=== PATIENT | male | born 1955 | race American Indian/Alaskan Native ===

== ENCOUNTER 2019-04-04 15:20 | Inpatient (IN) | payer MEDICARE ==
[2019-04-04] MEDS ORDERED: ASPIRIN 81 MG TAB CHEW PO ONE (16:06)
--- NOTE | 2019-04-04 16:09 | Emergency Department Report ---
ED Chest Pain HPI - General Chief Complaint: Urogenital-Male Stated Complaint: BLOOD IN URINE/CHEST PAIN Time Seen by Provider: 04/04/19 15:55 Source: EMS Mode of arrival: Stretcher Limitations: No Limitations - History of Present Illness Initial Comments: Patient is 63 years old male with history of coronary artery disease status post stents in 2018. Patient also had history of hypertension diabetes and congestive heart failure with ejection fraction of 10%. Patient presented to the ER complaining of chest pain started last night, substernal with no radiation. Patient stated the pain associated with shortness of breath. Patient is also complaining of hematuria for the last 3 days associated with a burning sensation and urinary frequency. Patient denied any fever or chills. No nausea or vomiting MD Complaint: chest pain -: Last night Onset: during rest Pain Location: substernal Pain Radiation: none Severity: moderate Quality: heaviness Consistency: constant - Related Data Home Medications Medication Instructions Recorded Confirmed Last Taken Acetaminophen [Tylenol Extra 500 mg PO TID 03/27/17 04/04/19 Unknown Strength] Cetirizine HCl [Zyrtec 10mg tab] 10 mg PO QAM 03/27/17 04/04/19 Unknown Folic Acid/Multivit,Iron,[place] 1 each PO DAILY 03/27/17 04/04/19 Unknown [One Daily Maximum Tablet] OLANZapine [Zyprexa] 20 mg PO QHS 03/27/17 04/04/19 Unknown Psyllium Husk/Aspartame [Metamucil 15 ml PO BID 03/27/17 04/04/19 Unknown Sugar-Free Powder] Sertraline [Zoloft] 50 mg PO DAILY 03/27/17 04/04/19 Unknown diphenhydrAMINE [Benadryl CAP] 50 mg PO QHS PRN 03/27/17 04/04/19 Unknown raNITIdine HCl [Zantac] 150 mg PO BID 03/27/17 04/04/19 Unknown tiZANidine [Zanaflex 4mg TAB] 4 mg PO HS 03/27/17 04/04/19 Unknown OLANzapine [ZyPREXA] 5 mg PO QDAY 04/04/19 04/04/19 Unknown Sertraline [Zoloft] 100 mg PO QDAY 04/04/19 04/04/19 Unknown Previous Rx's Medication Instructions Recorded Last Taken Type Aspirin EC [Halfprin EC] 81 mg PO DAILY #30 tablet 04/03/17 Unknown Rx AtorvaSTATin [Lipitor] 40 mg PO QHS #30 tablet 04/03/17 Unknown Rx Clopidogrel [Plavix] 75 mg PO QDAY #30 tablet 04/03/17 Unknown Rx ISOSORBIDE MONOnitrate [Imdur ER] 30 mg PO QDAY #30 tablet 04/03/17 Unknown Rx Temazepam [Restoril] 7.5 mg PO HS PRN #7 capsule 04/03/17 Unknown Rx carvediloL [Coreg] 3.125 mg PO BID #60 tablet 04/03/17 Unknown Rx lisinopriL [Zestril TAB] 2.5 mg PO QDAY #30 tablet 04/03/17 Unknown Rx oxyCODONE /ACETAMINOPHEN [Percocet 1 tab PO Q6HR PRN #14 tablet 04/03/17 Unknown Rx 5/325] Allergies Allergy/AdvReac Type Severity Reaction Status Date / Time No Known Allergies Allergy Unverified 03/26/17 20:25 Heart Score - HEART Score History: Moderately suspicious EKG: Non-specific Age: 45-65 Risk factors: > 3 risk factors or hx of atherosclerotic disease Troponin: < normal limit HEART Score: 5 - Critical Actions Critical Actions: 4-6 pts:12-16.6% risk of adverse cardiac event. Should be admitted ED Review of Systems ROS: Stated complaint: BLOOD IN URINE/CHEST PAIN Other details as noted in HPI Comment: All other systems reviewed and negative Constitutional: denies: chills, fever Respiratory: orthopnea, shortness of breath, SOB with exertion, SOB at rest. denies: cough, wheezing Cardiovascular: chest pain. denies: palpitations Gastrointestinal: denies: abdominal pain, nausea, vomiting, diarrhea, constipation, hematemesis, melena, hematochezia Musculoskeletal: denies: back pain Neurological: denies: headache, weakness, numbness, paresthesias, confusion ED Past Medical Hx - Past Medical History Previous Medical History?: Yes Hx Hypertension: Yes Hx Diabetes: Yes Additional medical history: Diverticulitis - Surgical History Past Surgical History?: Yes Additional Surgical History: stomach - Social History Smoking Status: Current Every Day Smoker Substance Use Type: None - Medications Home Medications: Home Medications Medication Instructions Recorded Confirmed Last Taken Type Acetaminophen [Tylenol Extra 500 mg PO TID 03/27/17 04/04/19 Unknown History Strength] Cetirizine HCl [Zyrtec 10mg tab] 10 mg PO QAM 03/27/17 04/04/19 Unknown History Folic Acid/Multivit,Iron,[place] 1 each PO DAILY 03/27/17 04/04/19 Unknown History [One Daily Maximum Tablet] OLANZapine [Zyprexa] 20 mg PO QHS 03/27/17 04/04/19 Unknown History Psyllium Husk/Aspartame [Metamucil 15 ml PO BID 03/27/17 04/04/19 Unknown History Sugar-Free Powder] Sertraline [Zoloft] 50 mg PO DAILY 03/27/17 04/04/19 Unknown History diphenhydrAMINE [Benadryl CAP] 50 mg PO QHS PRN 03/27/17 04/04/19 Unknown History raNITIdine HCl [Zantac] 150 mg PO BID 03/27/17 04/04/19 Unknown History tiZANidine [Zanaflex 4mg TAB] 4 mg PO HS 03/27/17 04/04/19 Unknown History Aspirin EC [Halfprin EC] 81 mg PO DAILY #30 tablet 04/03/17 04/04/19 Unknown Rx AtorvaSTATin [Lipitor] 40 mg PO QHS #30 tablet 04/03/17 04/04/19 Unknown Rx Clopidogrel [Plavix] 75 mg PO QDAY #30 tablet 04/03/17 04/04/19 Unknown Rx ISOSORBIDE MONOnitrate [Imdur ER] 30 mg PO QDAY #30 tablet 04/03/17 04/04/19 Unknown Rx Temazepam [Restoril] 7.5 mg PO HS PRN #7 capsule 04/03/17 04/04/19 Unknown Rx carvediloL [Coreg] 3.125 mg PO BID #60 tablet 04/03/17 04/04/19 Unknown Rx lisinopriL [Zestril TAB] 2.5 mg PO QDAY #30 tablet 04/03/17 04/04/19 Unknown Rx oxyCODONE /ACETAMINOPHEN [Percocet 1 tab PO Q6HR PRN #14 tablet 04/03/17 04/04/19 Unknown Rx 5/325] OLANzapine [ZyPREXA] 5 mg PO QDAY 04/04/19 04/04/19 Unknown History Sertraline [Zoloft] 100 mg PO QDAY 04/04/19 04/04/19 Unknown History ED Physical Exam - General Limitations: No Limitations General appearance: alert, in no apparent distress - Head Head exam: Present: atraumatic, normocephalic, normal inspection - Eye Eye exam: Present: normal appearance - ENT ENT exam: Present: normal exam, normal orophraynx, mucous membranes moist - Neck Neck exam: Present: normal inspection, full ROM. Absent: tenderness, meningismus, lymphadenopathy, thyromegaly - Respiratory Respiratory exam: Present: normal lung sounds bilaterally - Cardiovascular Cardiovascular Exam: Present: regular rate, normal rhythm, normal heart sounds - GI/Abdominal GI/Abdominal exam: Present: soft, normal bowel sounds. Absent: distended, tenderness, guarding, rebound, rigid, organomegaly, bruit, pulsatile mass, hernia - Extremities Exam Extremities exam: Present: normal inspection, full ROM, normal capillary refill, pedal edema - Back Exam Back exam: Present: normal inspection, full ROM. Absent: CVA tenderness (L) - Neurological Exam Neurological exam: Present: alert, oriented X3, CN II-XII intact - Psychiatric Psychiatric exam: Present: normal mood - Skin Skin exam: Present: warm, intact, normal color ED Course Vital Signs 04/04/19 04/04/19 04/04/19 15:28 15:33 15:45 Pulse Rate 78 76 79 Respiratory 20 24 28 H Rate Blood Pressure 113/72 115/74 Blood Pressure [Left] O2 Sat by Pulse 97 96 97 Oximetry 04/04/19 04/04/19 04/04/19 16:00 16:15 16:30 Pulse Rate 82 80 72 Respiratory 15 24 21 Rate Blood Pressure 116/74 126/83 125/79 Blood Pressure [Left] O2 Sat by Pulse 97 98 97 Oximetry 04/04/19 04/04/19 04/04/19 16:50 17:00 17:16 Pulse Rate 68 64 79 Respiratory 16 19 13 Rate Blood Pressure 126/83 114/80 143/86 Blood Pressure [Left] O2 Sat by Pulse 97 100 98 Oximetry 04/04/19 04/04/19 04/04/19 17:30 17:46 18:00 Pulse Rate 66 69 68 Respiratory 15 11 L 22 Rate Blood Pressure 119/76 126/73 145/93 Blood Pressure [Left] O2 Sat by Pulse 98 97 98 Oximetry 04/04/19 04/04/19 04/04/19 18:15 18:30 18:45 Pulse Rate 65 75 67 Respiratory 18 12 20 Rate Blood Pressure 137/87 143/96 146/86 Blood Pressure [Left] O2 Sat by Pulse 97 97 98 Oximetry 04/04/19 18:47 Pulse Rate 65 Respiratory 19 Rate Blood Pressure Blood Pressure 146/86 [Left] O2 Sat by Pulse 98 Oximetry ED Medical Decision Making - Lab Data Result diagrams: 04/04/19 16:15 04/04/19 16:15 - EKG Data -: EKG Interpreted by Me EKG shows normal: sinus rhythm Rate: normal - EKG Data Interpretation: no acute changes - Radiology Data Radiology results: report reviewed - Medical Decision Making Patient is 63 years old male with history of coronary artery disease status post stents in 2018. Patient also had history of hypertension diabetes and conges tive heart failure with ejection fraction of 10%. Patient presented to the ER complaining of chest pain started last night, substernal with no radiation. Patient stated the pain associated with shortness of breath. Patient is also complaining of hematuria for the last 3 days associated with a burning sensation and urinary frequency. Patient denied any fever or chills. No nausea or vomiting EKG showed no ST elevation. Labs reviewed and negative troponin. Chest x-ray is unremarkable. CT abdomen and pelvis showed evidence of cystitis that is consistent with patient urinalysis showing UTI. Patient received Rocephin 1 g IV. I discussed the patient with Dr. Lenora Murillo, she agreed to admit the patient to medical service for further management. Critical care attestation.: If time is entered above; I have spent that time in minutes in the direct care of this critically ill patient, excluding procedure time. ED Disposition Clinical Impression: Chest pain, Cystitis Disposition: [id number] OP ADMIT IP TO THIS HOSP Is pt being admited?: Yes Condition: Stable Instructions: Chest Pain (ED) Referrals: PRIMARY CARE, [Primary Care Provider] - 3-5 Days
[2019-04-04 16:38] LABS: Basophils # (Auto) 0.1 K/mm3 (0.0-0.1); Basophils % (Auto) 0.7 % (0.0-1.8); Eosinophils # (Auto) 0.3 K/mm3 (0.0-0.4); Eosinophils % (Auto) 3.6 % (0.0-4.3); Hemoglobin 13.9 gm/dl (11.8-15.2); Lymphocytes # (Auto) 1.4 K/mm3 (1.2-5.4); Lymphocytes % (Auto) 15.4 % (13.4-35.0); Mean Corpuscular HGB Conc 33 % (32-34); Mean Corpuscular Volume 91 fl (84-94); Monocytes # (Auto) 1.2 K/mm3 (0.0-0.8); Platelet Count 245 K/mm3 (140-440); Red Blood Count 4.61 M/mm3 (3.65-5.03); Red Cell Distribution Width 16.5 % (13.2-15.2)
[2019-04-04 16:48] LABS: INR 1.05 (0.87-1.13)
[2019-04-04 16:49] LABS: Partial Thromboplastin Time 30.1 Sec. (24.2-36.6)
[2019-04-04 17:06] LABS: BUN/Creatinine Ratio 9; Blood Urea Nitrogen 7 mg/dL (9-20); Calcium 8.7 mg/dL (8.4-10.2); Hemolysis Index 5
--- NOTE | 2019-04-04 17:14 | Cat Scan Report ---
CT of the abdomen and pelvis without contrast INDICATION: Flank pain and hematuria COMPARISON: None FINDINGS: Lung bases are clear. Gallstones are seen without cholecystitis. The liver, spleen, pancrea s and adrenal glands show no gross abnormalities. There are no calculi seen in either kidney. No shannan s renal masses. No hydronephrosis or perinephric edema. No fluid or adenopathy in the upper abdomen. There is moderate vascular calcification without aneurysm. Umbilical hernia contains bowel but no obs truction. CT of the pelvis shows no pelvic or inguinal adenopathy. Prostate is not enlarged. Bladder wall is th ickened there is mild perivesical induration suggesting cystitis. No distal ureteral stones. No stone fragments seen in the bladder. IMPRESSION: Probable cystitis. No kidney stones or obstruction. Automated exposure control was utilized to diminish radiation dose. Signer Name: Franky Woodall MD Signed: 04/04/2019 5:10 PM Workstation Name: [id number]
--- NOTE | 2019-04-04 18:07 | XRay Report ---
CHEST 1 VIEW INDICATION: Chest Pain. COMPARISON: 03/27/2017. FINDINGS: Support devices: None. Heart: Within normal limits. Lungs/Pleura: Mildly diminished lung volumes. Mild atelectasis left base. No significant infiltrate o r pleural fluid. Additional findings: None. IMPRESSION: Diminished lung volumes with mild left basilar atelectasis. Signer Name: Jose Quijano MD Signed: 04/04/2019 6:03 PM Workstation Name: [id number]
[2019-04-04 18:26] LABS: Bilirubin,Urine Negative (Negative); Color,Urine Yellow (Yellow)
[2019-04-04 18:27] LABS: Blood,Urine Large (Negative); Ictotest,Urine Negative (Negative); Urobilinogen,Urine < 2.0 mg/dL (<2.0)
[2019-04-04 18:28] LABS: Bacteria,Urine 2+ /HPF (Negative); RBC,Urine > 182.0 /HPF (0.0-6.0); WBC,Urine > 182.0 /HPF (0.0-6.0)
[2019-04-04] MEDS ORDERED: cefTRIAXone/NS 1 GM/50 ML 1 GM/50 ML BAG IV ONE (19:13)
--- NOTE | 2019-04-04 22:37 | History and Physical Report ---
History of Present Illness Date of admission: 04/04/19 22:11 History of present illness: 63-year-old male with a history of CHF, coronary artery disease, hypertension, depression comes emergency room with complaints of chest pain. Pain is in the epigastric area that started 1 week ago, has been intermittent and became worse on Thursday. He described the pain as sharp, lasting for 2 to 3 hours, intensity 5/10, radiating to his back. He denies any nausea vomiting, diaphoresis or palpitation, shortness of breath. Patient had a cardiac cath in 2018, results were reviewed. Patient also stated he has been having hematuria since Thursday, dysuria. Patient is being admitted for chest pain Review of systems Constitutional: no weight loss Ears, eyes, nose, mouth and throat: no nasal congestion, no nasal discharge, no sinus pressure, no vision change, no red eye. Neck: No neck pain or rigidity. Cardiovascular: no palpitations Respiratory: no cough, shortness of breath Gastrointestinal: no hematochezia, abdominal pain Genitourinary : no frequency , no hematuria Musculoskeletal: no joint swelling or muscle ache Integumentary: no rash, no pruritis Neurological: no parathesias, focal weakness Endocrine: no cold or heat intolerance, no polyuria or polydipsia Hematologic/Lymphatic: no easy bruising, no easy bleeding, no gland swelling Allergic/Immunologic: no urticaria, no angioedema. PAST MEDICAL HISTORY: CHF, coronary artery disease, hypertension, depression PAST SURGICAL HISTORY: Colon resection with reversal of colostomy, neck surgery SOCIAL HISTORY: Smokes half a pack a day, drinks 2 beers a day, no drug use FAMILY HISTORY: Hypertension Medications and Allergies Allergies Allergy/AdvReac Type Severity Reaction Status Date / Time No Known Allergies Allergy Unverified 03/26/17 20:25 Home Medications Medication Instructions Recorded Confirmed Last Taken Type Acetaminophen [Tylenol Extra 500 mg PO TID 03/27/17 04/04/19 Unknown History Strength] Cetirizine HCl [Zyrtec 10mg tab] 10 mg PO QAM 03/27/17 04/04/19 Unknown History Folic Acid/Multivit,Iron,[place] 1 each PO DAILY 03/27/17 04/04/19 Unknown History [One Daily Maximum Tablet] OLANZapine [Zyprexa] 20 mg PO QHS 03/27/17 04/04/19 Unknown History Psyllium Husk/Aspartame [Metamucil 15 ml PO BID 03/27/17 04/04/19 Unknown History Sugar-Free Powder] Sertraline [Zoloft] 50 mg PO DAILY 03/27/17 04/04/19 Unknown History diphenhydrAMINE [Benadryl CAP] 50 mg PO QHS PRN 03/27/17 04/04/19 Unknown History raNITIdine HCl [Zantac] 150 mg PO BID 03/27/17 04/04/19 Unknown History tiZANidine [Zanaflex 4mg TAB] 4 mg PO HS 03/27/17 04/04/19 Unknown History Aspirin EC [Halfprin EC] 81 mg PO DAILY #30 tablet 04/03/17 04/04/19 Unknown Rx AtorvaSTATin [Lipitor] 40 mg PO QHS #30 tablet 04/03/17 04/04/19 Unknown Rx Clopidogrel [Plavix] 75 mg PO QDAY #30 tablet 04/03/17 04/04/19 Unknown Rx ISOSORBIDE MONOnitrate [Imdur ER] 30 mg PO QDAY #30 tablet 04/03/17 04/04/19 Unknown Rx Temazepam [Restoril] 7.5 mg PO HS PRN #7 capsule 04/03/17 04/04/19 Unknown Rx carvediloL [Coreg] 3.125 mg PO BID #60 tablet 04/03/17 04/04/19 Unknown Rx lisinopriL [Zestril TAB] 2.5 mg PO QDAY #30 tablet 04/03/17 04/04/19 Unknown Rx oxyCODONE /ACETAMINOPHEN [Percocet 1 tab PO Q6HR PRN #14 tablet 04/03/17 04/04/19 Unknown Rx 5/325] OLANzapine [ZyPREXA] 5 mg PO QDAY 04/04/19 04/04/19 Unknown History Sertraline [Zoloft] 100 mg PO QDAY 04/04/19 04/04/19 Unknown History Exam - Physical Exam Narrative exam: Gen. appearance: Patient lying in bed, no apparent distress HEENT: Normocephalic, atraumatic, pupils equally round and reactive to light, extraocular movement intact, and no sclericterus,. No JVD or thyromegaly or nodule,neck supple, no carotid bruit ,mucous membranes moist, no exudate or erythema Heart: S1, S2, regular rate and rhythm Lungs: Clear to auscultation bilaterally, breathing comfortable Abdomen: Positive bowel sounds, nontender, nondistended, no organomegaly Extremity: No edema, cyanosis, clubbing Skin: No rash, nodules, warm, dry Neuro: Oriented 3, cranial nerves II-12 intact, speech is fluent, motor and se nsory intact - Constitutional Vitals: Temp Pulse Resp BP Pulse Ox 68 22 159/93 98 04/04/19 21:46 04/04/19 21:46 04/04/19 21:46 04/04/19 21:46 Results - Labs CBC & Chem 7: 04/04/19 16:15 04/04/19 16:15 Labs: Abnormal lab results 04/04/19 04/04/19 04/04/19 Range/Units 16:15 16:15 Unknown RDW 16.5 H (13.2-15.2) % [place] % (Auto) 13.0 H (0.0-7.3) % [place] # 1.2 H (0.0-0.8) K/mm3 Potassium 3.1 L (3.6-5.0) mmol/L BUN 7 L (9-20) mg/dL Glucose 129 H (75-100) mg/dL Urine Blood Large A (Negative) Urine WBC (Auto) > 182.0 H (0.0-6.0) /HPF - Imaging and Cardiology CT scan - abdomen: report reviewed CT scan - pelvis: report reviewed Assessment and Plan Assessment Chest pain/coronary artery disease Check cardiac enzymes, consult cardiology Start pain medications, continue cardiac medications Urinary tract infection with hematuria Continue Rocephin, follow cultures CHF, chronic systolic, stable Continue diuretics and other cardiac medications Depression Stable DVT prophylaxis, hold chemical agents secondary to hematuria
[2019-04-04] MEDS ORDERED: ONDANSETRON 4 MG/2 ML INJ IV PRN (23:34)
[2019-04-04] MEDS ORDERED: ACETAMINOPHEN 325 MG TAB PO PRN (23:34)
[2019-04-04] MEDS ORDERED: POTASSIUM CHLORIDE ER 20 MEQ TAB PO ONE ×2 (23:34→23:59)
[2019-04-04] MEDS ORDERED: TEMAZEPAM 7.5 MG PO PRN (23:36)
[2019-04-05] MEDS: oxyCODONE /ACETAMINOPHEN 5-325MG TAB PO PRN ×3 (00:57→18:45)
[2019-04-05 01:46] LABS: Creatine Kinase MB 5.4 ng/mL (0.0-4.0)
[2019-04-05 07:26] LABS: Basophils % (Auto) 0.4 % (0.0-1.8); Eosinophils # (Auto) 0.4 K/mm3 (0.0-0.4); Eosinophils % (Auto) 4.7 % (0.0-4.3); Hematocrit 43.1 % (35.5-45.6); Hemoglobin 14.2 gm/dl (11.8-15.2); Lymphocytes # (Auto) 2.3 K/mm3 (1.2-5.4); Lymphocytes % (Auto) 24.4 % (13.4-35.0); Mean Corpuscular HGB Conc 33 % (32-34); Mean Corpuscular Volume 91 fl (84-94); Monocytes # (Auto) 1.1 K/mm3 (0.0-0.8); Monocytes % (Auto) 11.2 % (0.0-7.3); Platelet Count 264 K/mm3 (140-440); Red Blood Count 4.76 M/mm3 (3.65-5.03)
[2019-04-05 07:42] LABS: Creatine Kinase MB 5.5 ng/mL (0.0-4.0)
[2019-04-05 07:43] LABS: BUN/Creatinine Ratio 9; Blood Urea Nitrogen 6 mg/dL (9-20); Hemolysis Index 1
[2019-04-05] MEDS: cefTRIAXone/NS 1 GM/50 ML 1 GM/50 ML BAG IV SCH (09:32)
[2019-04-05] MEDS: carvediloL 3.125 MG TAB PO SCH ×2 (09:33→21:23)
[2019-04-05] MEDS: ' PO SCH (09:33)
[2019-04-05] MEDS: PSYLLIUM SEED (WITH SUGAR) 3.4 GM PACKET PO SCH ×2 (09:33→21:23)
[2019-04-05] MEDS: FAMOTIDINE 20 MG TAB PO SCH ×2 (09:34→21:22)
[2019-04-05] MEDS: LISINOPRIL 5 MG TAB PO SCH (09:34)
[2019-04-05] MEDS: SERTRALINE 50 MG TAB PO SCH (09:34)
--- NOTE | 2019-04-05 11:42 | Consultation ---
History of Present Illness Consult date: 04/05/19 Consult reason: chest pain History of present illness: 63-year old male who presented to this hospital with complaints of hematuria and flank pain. Patient also reports black tarry stools for several weeks. Labs shows a stable H&H. An abdominal CT scan reports probable cystitis. In addition, he complains of chest pain thus this cardiac consultation. Patient denies nausea, vomiting. He denies unusual shortness of breath. A chest x-ray is negative for interstitial edema. Cardiac enzymes shows a CK at 1621 but a normal relative index, 0.3. Finding consistent with rhabdomyolysis. Cycled troponins were normal. An ECG is sinus rhythm with occasional PACs. Patient has a history of coronary artery disease. A right and left cardiac cath in 2018 that reports multi-vessel coronary artery disease including mid-distal LAD stenosis, predominately nonischemic, moderate to severe pulmonary HTN, PASP 66, EF 10-15%. Patient underwent staged PCI of the mid LAD and discharged on medical therapy. Since discharge, the patient has failed for outpatient cardiac follow ups. He has not had any recent cardiac evaluation. Today, the patient is chest pain free. He denies unusual shortness of breath. His plavix and aspirin has been stopped due to hematuria. Medications and Allergies Allergies Allergy/AdvReac Type Severity Reaction Status Date / Time No Known Allergies Allergy Unverified 03/26/17 20:25 Home Medications Medication Instructions Recorded Confirmed Last Taken Type Acetaminophen [Tylenol Extra 500 mg PO TID 03/27/17 04/04/19 Unknown History Strength] Cetirizine HCl [Zyrtec 10mg tab] 10 mg PO QAM 03/27/17 04/04/19 Unknown History Folic Acid/Multivit,Iron,[employer] 1 each PO DAILY 03/27/17 04/04/19 Unknown History [One Daily Maximum Tablet] OLANZapine [Zyprexa] 20 mg PO QHS 03/27/17 04/04/19 Unknown History Psyllium Husk/Aspartame [Metamucil 15 ml PO BID 03/27/17 04/04/19 Unknown History Sugar-Free Powder] Sertraline [Zoloft] 50 mg PO DAILY 03/27/17 04/04/19 Unknown History diphenhydrAMINE [Benadryl CAP] 50 mg PO QHS PRN 03/27/17 04/04/19 Unknown History raNITIdine HCl [Zantac] 150 mg PO BID 03/27/17 04/04/19 Unknown History tiZANidine [Zanaflex 4mg TAB] 4 mg PO HS 03/27/17 04/04/19 Unknown History Aspirin EC [Halfprin EC] 81 mg PO DAILY #30 tablet 04/03/17 04/04/19 Unknown Rx AtorvaSTATin [Lipitor] 40 mg PO QHS #30 tablet 04/03/17 04/04/19 Unknown Rx Clopidogrel [Plavix] 75 mg PO QDAY #30 tablet 04/03/17 04/04/19 Unknown Rx ISOSORBIDE MONOnitrate [Imdur ER] 30 mg PO QDAY #30 tablet 04/03/17 04/04/19 Unknown Rx Temazepam [Restoril] 7.5 mg PO HS PRN #7 capsule 04/03/17 04/04/19 Unknown Rx carvediloL [Coreg] 3.125 mg PO BID #60 tablet 04/03/17 04/04/19 Unknown Rx lisinopriL [Zestril TAB] 2.5 mg PO QDAY #30 tablet 04/03/17 04/04/19 Unknown Rx oxyCODONE /ACETAMINOPHEN [Percocet 1 tab PO Q6HR PRN #14 tablet 04/03/17 04/04/19 Unknown Rx 5/325] OLANzapine [ZyPREXA] 5 mg PO QDAY 04/04/19 04/04/19 Unknown History Sertraline [Zoloft] 100 mg PO QDAY 04/04/19 04/04/19 Unknown History Active Meds: Active Medications Acetaminophen (Tylenol) 650 mg PO Q4H PRN PRN Reason: Pain MILD(1-3)/Fever >100.5/BARRETO Atorvastatin Calcium (Lipitor) 40 mg PO QHS [facility] Carvedilol (Coreg) 3.125 mg PO BID [facility] Last Admin: 04/05/19 09:33 Dose: 3.125 mg Documented by: Famotidine (Pepcid) 20 mg PO BID [facility] Last Admin: 04/05/19 09:34 Dose: 20 mg Documented by: Ceftriaxone Sodium (Rocephin/Ns 1 Gm/50 Ml) 1 gm in 50 mls @ 100 mls/hr IV Q24HR [facility]; Protocol Last Admin: 04/05/19 09:32 Dose: 100 mls/hr Documented by: Isosorbide Mononitrate (Imdur) 30 mg PO QDAY [facility] Last Admin: 04/05/19 09:34 Dose: 30 mg Documented by: Lisinopril (Zestril) 2.5 mg PO QDAY [facility] Last Admin: 04/05/19 09:34 Dose: 2.5 mg Documented by: Multivitamins/Minerals (Theragran-M Tab) 1 each PO QDAY [facility] Last Admin: 04/05/19 09:33 Dose: 1 each Documented by: Olanzapine (Zyprexa) 5 mg PO QDAY [facility] Last Admin: 04/05/19 10:51 Dose: 5 mg Documented by: Ondansetron HCl (Zofran) 4 mg IV Q8H PRN PRN Reason: Nausea And Vomiting Oxycodone/Acetaminophen (Percocet 5/325) 1 tab PO Q6H PRN PRN Reason: Pain, Moderate (4-6) Last Admin: 04/05/19 08:06 Dose: 1 tab Documented by: Psyllium Hydrophilic Mucilloid (Metamucil) 1 each PO BID [facility] Last Admin: 04/05/19 09:33 Dose: 1 each Documented by: Sertraline HCl (Zoloft) 50 mg PO DAILY [facility] Last Admin: 04/05/19 09:34 Dose: 50 mg Documented by: Sodium Chloride (Sodium Chloride Flush Syringe 10 Ml) 10 ml IV BID [facility] Last Admin: 04/05/19 09:35 Dose: 10 ml Documented by: Sodium Chloride (Sodium Chloride Flush Syringe 10 Ml) 10 ml IV PRN PRN PRN Reason: LINE FLUSH Physical Examination Vital Signs Pulse Resp BP Pulse Ox 78 20 113/72 97 04/04/19 15:28 04/04/19 15:28 04/04/19 15:28 04/04/19 15:28 General appearance: no acute distress HEENT: Positive: PERRL Neck: Positive: trachea midline Cardiac: Positive: Reg Rate and Rhythm Lungs: Positive: Normal Breath Sounds Neuro: Positive: Grossly Intact Extremities: Absent: edema Results 04/05/19 06:38 04/05/19 06:38 Cardiac Enzymes 04/05/19 04/05/19 Range/Units 01:13 06:38 CK-MB (CK-2) 5.4 H 5.5 H (0.0-4.0) ng/mL Coagulation 04/04/19 Range/Units 16:15 PT 13.8 (12.2-14.9) Sec. INR 1.05 (0.87-1.13) APTT 30.1 (24.2-36.6) Sec. CBC 04/04/19 04/05/19 Range/Units 16:15 06:38 WBC 9.2 9.6 (4.5-11.0) K/mm3 RBC 4.61 4.76 (3.65-5.03) M/mm3 Hgb 13.9 14.2 (11.8-15.2) gm/dl Hct 42.0 43.1 (35.5-45.6) % Plt Count 245 264 (140-440) K/mm3 Lymph # 1.4 2.3 (1.2-5.4) K/mm3 [place] # 1.2 H 1.1 H (0.0-0.8) K/mm3 Eos # 0.3 0.4 (0.0-0.4) K/mm3 Baso # 0.1 0.0 (0.0-0.1) K/mm3 Comprehensive Metabolic Panel 04/04/19 04/05/19 Range/Units 16:15 06:38 Sodium 142 146 H (137-145) mmol/L Potassium 3.1 L 3.4 L (3.6-5.0) mmol/L Chloride 104.2 105.2 (98-107) mmol/L Carbon Dioxide 25 24 (22-30) mmol/L BUN 7 L 6 L (9-20) mg/dL Creatinine 0.8 0.7 L (0.8-1.5) mg/dL Glucose 129 H 104 H (75-100) mg/dL Calcium 8.7 9.0 (8.4-10.2) mg/dL Assessment and Plan Chest pain Rhabdomyolysis Hematuria Nonischemic CM, EF 10-15% Hx of CAD s/p PCI of the mid LAD in 2018 plavix and aspirin discontinued due to hematuria Hypertension
--- NOTE | 2019-04-05 14:51 | Progress Note ---
Assessment and Plan Assessment and plan: --Toño hematuria; Continuous Callejas catheterization, bladder irrigation if needed Input output monitoring, urology consult --Urinary tract infection; empiric antibiotics IV fluids, follow cultures, adjust antibiotics per sensitivities --Atypical chest pain; patient with history of coronary artery disease Serial cardiac enzymes, serial EKG, follow echocardiogram Continue current cardiac medications, cardiology following --Coronary artery disease status post PCI in 2018; Hold aspirin and Plavix , patient has hematuria Cardiology following --Cardiomyopathy; ejection fraction 10 to 15% Continue heart failure medications, input output monitoring Fluid restriction low-cholesterol diet --History of hypertension; moderate control Continue current antihypertensives and PRN medications --Rhabdomyolysis; preserved renal function Gentle hydration monitor input output Monitor CK levels --DVT prophylaxis; no pharmacologic anticoagulation in view of hematuria SCDs Monitor closely and adjust management as needed Plan of care reviewed with the patient and his nurse History Interval history: 63-year-old male patient with significant history of congestive heart failure coronary artery disease hypertension depression was admitted through emergency room with dysuria and hematuria of 3 days duration, patient also has chest pain and intermittent shortness of breath. Patient continues to have hematuria sometimes with blood clots. No history of bladder or prostate issues Never had similar symptoms in the past, no history of renal stones Patient complains of burning micturition, and hematuria Denies chest pain or shortness of breath Alert awake oriented x3 Vital signs reviewed, stable Hospitalist Physical - Constitutional Vitals: Temp Pulse Resp BP Pulse Ox 98.0 F 65 18 133/84 97 04/05/19 12:40 04/05/19 10:00 04/05/19 12:40 04/05/19 12:40 04/05/19 10:22 General appearance: Present: mild distress, well-nourished - EENT Eyes: Present: PERRL, EOM intact - Neck Neck: Present: supple, normal ROM - Respiratory Respiratory effort: normal Respiratory: bilateral: diminished, negative: rales, rhonchi, wheezing - Cardiovascular Rhythm: regular Heart Sounds: Present: S1 & S2 - Extremities Extremities: no ischemia, No edema - Abdominal General gastrointestinal: soft, non-tender, non-distended, normal bowel sounds - Integumentary Integumentary: Present: clear, warm - Psychiatric Psychiatric: appropriate mood/affect, cooperative - Neurologic Neurologic: moves all extremities Results - Labs CBC & Chem 7: 04/06/19 04:37 04/06/19 04:37 Labs: Laboratory Last Values WBC 9.6 K/mm3 (4.5-11.0) 04/05/19 06:38 RBC 4.76 M/mm3 (3.65-5.03) 04/05/19 06:38 Hgb 14.2 gm/dl (11.8-15.2) 04/05/19 06:38 Hct 43.1 % (35.5-45.6) 04/05/19 06:38 MCV 91 fl (84-94) 04/05/19 06:38 MCH 30 pg (28-32) 04/05/19 06:38 MCHC 33 % (32-34) 04/05/19 06:38 RDW 16.0 % (13.2-15.2) H 04/05/19 06:38 Plt Count 264 K/mm3 (140-440) 04/05/19 06:38 Lymph % (Auto) 24.4 % (13.4-35.0) 04/05/19 06:38 [place] % (Auto) 11.2 % (0.0-7.3) H 04/05/19 06:38 Eos % (Auto) 4.7 % (0.0-4.3) H 04/05/19 06:38 Baso % (Auto) 0.4 % (0.0-1.8) 04/05/19 06:38 Lymph # 2.3 K/mm3 (1.2-5.4) 04/05/19 06:38 [place] # 1.1 K/mm3 (0.0-0.8) H 04/05/19 06:38 Eos # 0.4 K/mm3 (0.0-0.4) 04/05/19 06:38 Baso # 0.0 K/mm3 (0.0-0.1) 04/05/19 06:38 Seg Neutrophils % 59.3 % (40.0-70.0) 04/05/19 06:38 Seg Neutrophils # 5.7 K/mm3 (1.8-7.7) 04/05/19 06:38 PT 13.8 Sec. (12.2-14.9) 04/04/19 16:15 INR 1.05 (0.87-1.13) 04/04/19 16:15 APTT 30.1 Sec. (24.2-36.6) 04/04/19 16:15 Sodium 146 mmol/L (137-145) H 04/05/19 06:38 Potassium 3.4 mmol/L (3.6-5.0) L 04/05/19 06:38 Chloride 105.2 mmol/L (98-107) 04/05/19 06:38 Carbon Dioxide 24 mmol/L (22-30) 04/05/19 06:38 Anion Gap 20 mmol/L 04/05/19 06:38 BUN 6 mg/dL (9-20) L 04/05/19 06:38 Creatinine 0.7 mg/dL (0.8-1.5) L 04/05/19 06:38 Estimated GFR > 60 ml/min 04/05/19 06:38 BUN/Creatinine Ratio 9 % 04/05/19 06:38 Glucose 104 mg/dL (75-100) H 04/05/19 06:38 Calcium 9.0 mg/dL (8.4-10.2) 04/05/19 06:38 Total Creatine Kinase 1490 units/L (55-170) H 04/05/19 06:38 CK-MB (CK-2) 5.5 ng/mL (0.0-4.0) H 04/05/19 06:38 CK-MB (CK-2) Rel Index 0.3 (0-4) 04/05/19 06:38 Troponin T < 0.010 ng/mL (0.00-0.029) 04/05/19 06:38 NT-Pro-B Natriuret Pep 887.0 pg/mL (0-900) 04/04/19 16:15 Lipase 26 units/L (13-60) 04/04/19 16:15 Urine Color Yellow (Yellow) 04/04/19 Unknown Urine Turbidity Cloudy (Clear) 04/04/19 Unknown Urine pH 6.0 (5.0-7.0) 04/04/19 Unknown Ur Specific [place] 1.020 (1.003-1.030) 04/04/19 Unknown Urine Protein 100 mg/dl mg/dL (Negative) 04/04/19 Unknown Urine Glucose (UA) Negative mg/dL (Negative) 04/04/19 Unknown Urine Ketones Negative mg/dL (Negative) 04/04/19 Unknown Urine Blood Large (Negative) A 04/04/19 Unknown Urine Nitrite Negative (Negative) 04/04/19 Unknown Ur Reducing Substances Negative (Negative) 04/04/19 Unknown Urine Bilirubin Negative (Negative) 04/04/19 Unknown Urine Ictotest Negative (Negative) 04/04/19 Unknown Urine Urobilinogen < 2.0 mg/dL (<2.0) 04/04/19 Unknown Ur Leukocyte Esterase Large (Negative) 04/04/19 Unknown Urine WBC (Auto) > 182.0 /HPF (0.0-6.0) H 04/04/19 Unknown Urine RBC (Auto) > 182.0 /HPF (0.0-6.0) 04/04/19 Unknown U Epithel Cells (Auto) 13.0 /HPF (0-13.0) 04/04/19 Unknown Urine Bacteria (Auto) 2+ /HPF (Negative) 04/04/19 Unknown Active Medications - Current Medications Current Medications: Generic Name Dose Route Start Last Admin Trade Name Freq PRN Reason Stop Dose Admin Acetaminophen 650 mg 04/04/19 23:34 Tylenol PO Q4H PRN Pain MILD(1-3)/Fever >100.5/BARRETO Atorvastatin Calcium 40 mg 04/05/19 22:00 Lipitor PO QHS [facility] Carvedilol 3.125 mg 04/05/19 10:00 04/05/19 09:33 Coreg PO 3.125 mg BID CHRISTIANO Administration Famotidine 20 mg 04/05/19 10:00 04/05/19 09:34 Pepcid PO 20 mg BID CHRISTIANO Administration Ceftriaxone Sodium 1 gm in 50 mls @ 100 mls/hr 04/05/19 10:00 04/05/19 09:32 Rocephin/Ns 1 Gm/50 Ml IV 100 mls/hr Q24HR CHRISTIANO Administration Protocol Isosorbide Mononitrate 30 mg 04/05/19 10:00 04/05/19 09:34 Imdur PO 30 mg QDAY CHRISTIANO Administration Lisinopril 2.5 mg 04/05/19 10:00 04/05/19 09:34 Zestril PO 2.5 mg QDAY CHRISTIANO Administration Multivitamins/Minerals 1 each 04/05/19 10:00 04/05/19 09:33 Theragran-M Tab PO 1 each QDAY CHRISTIANO Administration Olanzapine 5 mg 04/05/19 10:00 04/05/19 10:51 Zyprexa PO 5 mg QDAY CHRISTIANO Administration Ondansetron HCl 4 mg 04/04/19 23:34 Zofran IV Q8H PRN Nausea And Vomiting Oxycodone/Acetaminophen 1 tab 04/04/19 23:34 04/05/19 08:06 Percocet 5/325 PO 1 tab Q6H PRN Administration Pain, Moderate (4-6) Psyllium Hydrophilic Mucilloid 1 each 04/04/19 23:00 04/05/19 09:33 Metamucil PO 1 each BID CHRISTIANO Administration Sertraline HCl 50 mg 04/05/19 10:00 04/05/19 09:34 Zoloft PO 50 mg DAILY CHRISTIANO Administration Sodium Chloride 10 ml 04/05/19 10:00 04/05/19 09:35 Sodium Chloride Flush Syringe 10 Ml IV 10 ml BID CHRISTIANO Administration Sodium Chloride 10 ml 04/04/19 23:34 Sodium Chloride Flush Syringe 10 Ml IV PRN PRN LINE FLUSH
--- NOTE | 2019-04-05 17:06 | Consultation ---
History of Present Illness - Reason for Consult Consult date: 04/05/19 - History of Present Illness Patient is 63 years old male with history of coronary artery disease status post stents in 2018. Patient also had history of hypertension diabetes and congestive heart failure with ejection fraction of 10%. Patient presented to the ER complaining of chest pain, substernal with no radiation. Patient stated the pain associated with shortness of breath. Patient is also complaining of hematuria for the last 3 days associated with a burning sensation and urinary frequency. Patient denied any fever or chills. No nausea or vomiting no preivous gu hx CTAP--no acute findings abd soft uncirc phallus--nunes balloon in urethral wire nunes(16F) [place] tip---irrigated few samll clots hematuria urethral trauma home with nunes Medications and Allergies Allergies Allergy/AdvReac Type Severity Reaction Status Date / Time No Known Allergies Allergy Unverified 03/26/17 20:25 Home Medications Medication Instructions Recorded Confirmed Last Taken Type Acetaminophen [Tylenol Extra 500 mg PO TID 03/27/17 04/04/19 Unknown History Strength] Cetirizine HCl [Zyrtec 10mg tab] 10 mg PO QAM 03/27/17 04/04/19 Unknown History Folic Acid/Multivit,Iron,[employer] Management Coordinator 1 each PO DAILY 03/27/17 04/04/19 Unknown History [One Daily Maximum Tablet] OLANZapine [Zyprexa] 20 mg PO QHS 03/27/17 04/04/19 Unknown History Psyllium Husk/Aspartame [Metamucil 15 ml PO BID 03/27/17 04/04/19 Unknown History Sugar-Free Powder] Sertraline [Zoloft] 50 mg PO DAILY 03/27/17 04/04/19 Unknown History diphenhydrAMINE [Benadryl CAP] 50 mg PO QHS PRN 03/27/17 04/04/19 Unknown History raNITIdine HCl [Zantac] 150 mg PO BID 03/27/17 04/04/19 Unknown History tiZANidine [Zanaflex 4mg TAB] 4 mg PO HS 03/27/17 04/04/19 Unknown History Aspirin EC [Halfprin EC] 81 mg PO DAILY #30 tablet 04/03/17 04/04/19 Unknown Rx AtorvaSTATin [Lipitor] 40 mg PO QHS #30 tablet 04/03/17 04/04/19 Unknown Rx Clopidogrel [Plavix] 75 mg PO QDAY #30 tablet 04/03/17 04/04/19 Unknown Rx ISOSORBIDE MONOnitrate [Imdur ER] 30 mg PO QDAY #30 tablet 04/03/17 04/04/19 Unknown Rx Temazepam [Restoril] 7.5 mg PO HS PRN #7 capsule 04/03/17 04/04/19 Unknown Rx carvediloL [Coreg] 3.125 mg PO BID #60 tablet 04/03/17 04/04/19 Unknown Rx lisinopriL [Zestril TAB] 2.5 mg PO QDAY #30 tablet 04/03/17 04/04/19 Unknown Rx oxyCODONE /ACETAMINOPHEN [Percocet 1 tab PO Q6HR PRN #14 tablet 04/03/17 04/04/19 Unknown Rx 5/325] OLANzapine [ZyPREXA] 5 mg PO QDAY 04/04/19 04/04/19 Unknown History Sertraline [Zoloft] 100 mg PO QDAY 04/04/19 04/04/19 Unknown History Active Meds: Active Medications Acetaminophen (Tylenol) 650 mg PO Q4H PRN PRN Reason: Pain MILD(1-3)/Fever >100.5/BARRETO Atorvastatin Calcium (Lipitor) 40 mg PO QHS [facility] Carvedilol (Coreg) 3.125 mg PO BID [facility] Last Admin: 04/05/19 09:33 Dose: 3.125 mg Documented by: Famotidine (Pepcid) 20 mg PO BID [facility] Last Admin: 04/05/19 09:34 Dose: 20 mg Documented by: Ceftriaxone Sodium (Rocephin/Ns 1 Gm/50 Ml) 1 gm in 50 mls @ 100 mls/hr IV Q24HR [facility]; Protocol Last Admin: 04/05/19 09:32 Dose: 100 mls/hr Documented by: Dextrose/Sodium Chloride (D5/0.45ns) 1,000 mls @ 75 mls/hr IV DIRECT CHRISTIANO Isosorbide Mononitrate (Imdur) 30 mg PO QDAY [facility] Last Admin: 04/05/19 09:34 Dose: 30 mg Documented by: Lisinopril (Zestril) 2.5 mg PO QDAY [facility] Last Admin: 04/05/19 09:34 Dose: 2.5 mg Documented by: Multivitamins/Minerals (Theragran-M Tab) 1 each PO QDAY [facility] Last Admin: 04/05/19 09:33 Dose: 1 each Documented by: Olanzapine (Zyprexa) 5 mg PO QDAY [facility] Last Admin: 04/05/19 10:51 Dose: 5 mg Documented by: Ondansetron HCl (Zofran) 4 mg IV Q8H PRN PRN Reason: Nausea And Vomiting Oxycodone/Acetaminophen (Percocet 5/325) 1 tab PO Q6H PRN PRN Reason: Pain, Moderate (4-6) Last Admin: 04/05/19 08:06 Dose: 1 tab Documented by: Psyllium Hydrophilic Mucilloid (Metamucil) 1 each PO BID [facility] Last Admin: 04/05/19 09:33 Dose: 1 each Documented by: Sertraline HCl (Zoloft) 50 mg PO DAILY [facility] Last Admin: 04/05/19 09:34 Dose: 50 mg Documented by: Sodium Chloride (Sodium Chloride Flush Syringe 10 Ml) 10 ml IV BID [facility] Last Admin: 04/05/19 09:35 Dose: 10 ml Documented by: Sodium Chloride (Sodium Chloride Flush Syringe 10 Ml) 10 ml IV PRN PRN PRN Reason: LINE FLUSH Exam - Constitutional Vitals: Temp Pulse Resp BP Pulse Ox 98.0 F 73 18 133/84 97 04/05/19 12:40 04/05/19 12:00 04/05/19 12:40 04/05/19 12:40 04/05/19 10:22 Results - Labs CBC & Chem 7: 04/05/19 06:38 04/05/19 06:38 Labs: Abnormal lab results 04/04/19 04/04/19 04/05/19 Range/Units 16:15 Unknown 01:13 RDW (13.2-15.2) % [place] % (Auto) (0.0-7.3) % Eos % (Auto) (0.0-4.3) % [place] # (0.0-0.8) K/mm3 Sodium (137-145) mmol/L Potassium 3.1 L (3.6-5.0) mmol/L BUN 7 L (9-20) mg/dL Creatinine (0.8-1.5) mg/dL Glucose 129 H (75-100) mg/dL Total Creatine Kinase 1621 H (55-170) units/L CK-MB (CK-2) 5.4 H (0.0-4.0) ng/mL Urine Blood Large A (Negative) Urine WBC (Auto) > 182.0 H (0.0-6.0) /HPF 04/05/19 04/05/19 04/05/19 Range/Units 06:38 06:38 06:38 RDW 16.0 H (13.2-15.2) % [place] % (Auto) 11.2 H (0.0-7.3) % Eos % (Auto) 4.7 H (0.0-4.3) % [place] # 1.1 H (0.0-0.8) K/mm3 Sodium 146 H (137-145) mmol/L Potassium 3.4 L (3.6-5.0) mmol/L BUN 6 L (9-20) mg/dL Creatinine 0.7 L (0.8-1.5) mg/dL Glucose 104 H (75-100) mg/dL Total Creatine Kinase 1490 H (55-170) units/L CK-MB (CK-2) 5.5 H (0.0-4.0) ng/mL Urine Blood (Negative) Urine WBC (Auto) (0.0-6.0) /HPF
[2019-04-05] MEDS: D5W/0.45% NACL 1,000 ML IV SCH (21:40)
[2019-04-05] MEDS: ZOLPIDEM 5 MG TAB PO PRN (23:34)
[2019-04-06 05:29] LABS: Basophils % (Auto) 0.3 % (0.0-1.8); Eosinophils # (Auto) 0.4 K/mm3 (0.0-0.4); Eosinophils % (Auto) 3.6 % (0.0-4.3); Hematocrit 40.6 % (35.5-45.6); Hemoglobin 13.7 gm/dl (11.8-15.2); Lymphocytes # (Auto) 2.4 K/mm3 (1.2-5.4); Mean Corpuscular HGB Conc 34 % (32-34); Mean Corpuscular Volume 90 fl (84-94); Monocytes # (Auto) 1.3 K/mm3 (0.0-0.8); Monocytes % (Auto) 10.5 % (0.0-7.3); Platelet Count 282 K/mm3 (140-440); Red Cell Distribution Width 16.3 % (13.2-15.2)
[2019-04-06 05:51] LABS: BUN/Creatinine Ratio 8; Blood Urea Nitrogen 5 mg/dL (9-20); Hemolysis Index 8
--- NOTE | 2019-04-06 09:04 | Progress Note ---
Assessment and Plan Assessment and plan: --Toño hematuria; Continuous Callejas catheterization, bladder irrigation Urology evaluation and recommendations noted and appreciated Recommend DC home with Callejas and follow-up in the office for further evaluation --Urinary tract infection; continue empiric antibiotics Symptoms slightly improved, follow culture sensitivities and adjust antibiotics --Atypical chest pain; probably musculoskeletal pain Serial cardiac enzymes negative, EF 55 to 60% Continue current cardiac medications, cardiology following --Coronary artery disease status post PCI in 2018; Hold aspirin and Plavix , patient has hematuria Cardiology following, will resume aspirin if okay with urology --Cardiomyopathy; EF during this admission 55 to 60% No evidence of cardiomyopathy --History of hypertension; moderate control Continue current antihypertensives and PRN medications --Rhabdomyolysis; preserved renal function Gentle hydration monitor input output CK levels 800s, advised plenty of oral fluids --DVT prophylaxis; no pharmacologic anticoagulation in view of hematuria SCDs Monitor closely and adjust management as needed Plan of care reviewed with the patient and his nurse Consults and recommendations noted and appreciated Possible discharge tomorrow if stable History Interval history: Patient seen and examined at bedside in his room this morning Patient's chart, other records, consultants reports reviewed Urology evaluation and recommendations noted and appreciated Patient has Callejas with blood-tinged urine, no clots Patient complains of generalized weakness And suprapubic discomfort Alert awake oriented Vital signs noted Hospitalist Physical - Constitutional Vitals: Temp Pulse Resp BP Pulse Ox 98.2 F 71 18 163/94 96 04/06/19 08:02 04/06/19 03:32 04/06/19 08:02 04/06/19 08:02 04/06/19 03:32 General appearance: Present: no acute distress, well-nourished - EENT Eyes: Present: PERRL, EOM intact - Neck Neck: Present: supple, normal ROM - Respiratory Respiratory effort: normal Respiratory: bilateral: diminished, negative: rales, rhonchi, wheezing - Cardiovascular Rhythm: regular Heart Sounds: Present: S1 & S2 - Extremities Extremities: no ischemia, No edema - Abdominal General gastrointestinal: soft, non-tender, non-distended, normal bowel sounds - Integumentary Integumentary: Present: clear, warm - Psychiatric Psychiatric: appropriate mood/affect, cooperative - Neurologic Neurologic: moves all extremities Results - Labs CBC & Chem 7: 04/06/19 04:37 04/07/19 09:38 Labs: Laboratory Last Values WBC 12.0 K/mm3 (4.5-11.0) H 04/06/19 04:37 RBC 4.50 M/mm3 (3.65-5.03) 04/06/19 04:37 Hgb 13.7 gm/dl (11.8-15.2) 04/06/19 04:37 Hct 40.6 % (35.5-45.6) 04/06/19 04:37 MCV 90 fl (84-94) 04/06/19 04:37 MCH 30 pg (28-32) 04/06/19 04:37 MCHC 34 % (32-34) 04/06/19 04:37 RDW 16.3 % (13.2-15.2) H 04/06/19 04:37 Plt Count 282 K/mm3 (140-440) 04/06/19 04:37 Lymph % (Auto) 20.0 % (13.4-35.0) 04/06/19 04:37 [place] % (Auto) 10.5 % (0.0-7.3) H 04/06/19 04:37 Eos % (Auto) 3.6 % (0.0-4.3) 04/06/19 04:37 Baso % (Auto) 0.3 % (0.0-1.8) 04/06/19 04:37 Lymph # 2.4 K/mm3 (1.2-5.4) 04/06/19 04:37 [place] # 1.3 K/mm3 (0.0-0.8) H 04/06/19 04:37 Eos # 0.4 K/mm3 (0.0-0.4) 04/06/19 04:37 Baso # 0.0 K/mm3 (0.0-0.1) 04/06/19 04:37 Seg Neutrophils % 65.6 % (40.0-70.0) 04/06/19 04:37 Seg Neutrophils # 7.9 K/mm3 (1.8-7.7) H 04/06/19 04:37 PT 13.8 Sec. (12.2-14.9) 04/04/19 16:15 INR 1.05 (0.87-1.13) 04/04/19 16:15 APTT 30.1 Sec. (24.2-36.6) 04/04/19 16:15 Sodium 145 mmol/L (137-145) 04/06/19 04:37 Potassium 3.0 mmol/L (3.6-5.0) L 04/06/19 04:37 Chloride 104.3 mmol/L (98-107) 04/06/19 04:37 Carbon Dioxide 25 mmol/L (22-30) 04/06/19 04:37 Anion Gap 19 mmol/L 04/06/19 04:37 BUN 5 mg/dL (9-20) L 04/06/19 04:37 Creatinine 0.6 mg/dL (0.8-1.5) L 04/06/19 04:37 Estimated GFR > 60 ml/min 04/06/19 04:37 BUN/Creatinine Ratio 8 % 04/06/19 04:37 Glucose 133 mg/dL (75-100) H 04/06/19 04:37 Calcium 9.0 mg/dL (8.4-10.2) 04/06/19 04:37 Total Creatine Kinase 1490 units/L (55-170) H 04/05/19 06:38 CK-MB (CK-2) 5.5 ng/mL (0.0-4.0) H 04/05/19 06:38 CK-MB (CK-2) Rel Index 0.3 (0-4) 04/05/19 06:38 Troponin T < 0.010 ng/mL (0.00-0.029) 04/05/19 06:38 NT-Pro-B Natriuret Pep 887.0 pg/mL (0-900) 04/04/19 16:15 Lipase 26 units/L (13-60) 04/04/19 16:15 Urine Color Yellow (Yellow) 04/04/19 Unknown Urine Turbidity Cloudy (Clear) 04/04/19 Unknown Urine pH 6.0 (5.0-7.0) 04/04/19 Unknown Ur Specific [place] 1.020 (1.003-1.030) 04/04/19 Unknown Urine Protein 100 mg/dl mg/dL (Negative) 04/04/19 Unknown Urine Glucose (UA) Negative mg/dL (Negative) 04/04/19 Unknown Urine Ketones Negative mg/dL (Negative) 04/04/19 Unknown Urine Blood Large (Negative) A 04/04/19 Unknown Urine Nitrite Negative (Negative) 04/04/19 Unknown Ur Reducing Substances Negative (Negative) 04/04/19 Unknown Urine Bilirubin Negative (Negative) 04/04/19 Unknown Urine Ictotest Negative (Negative) 04/04/19 Unknown Urine Urobilinogen < 2.0 mg/dL (<2.0) 04/04/19 Unknown Ur Leukocyte Esterase Large (Negative) 04/04/19 Unknown Urine WBC (Auto) > 182.0 /HPF (0.0-6.0) H 04/04/19 Unknown Urine RBC (Auto) > 182.0 /HPF (0.0-6.0) 04/04/19 Unknown U Epithel Cells (Auto) 13.0 /HPF (0-13.0) 04/04/19 Unknown Urine Bacteria (Auto) 2+ /HPF (Negative) 04/04/19 Unknown Active Medications - Current Medications Current Medications: Generic Name Dose Route Start Last Admin Trade Name Freq PRN Reason Stop Dose Admin Acetaminophen 650 mg 04/04/19 23:34 Tylenol PO Q4H PRN Pain MILD(1-3)/Fever >100.5/BARRETO Atorvastatin Calcium 40 mg 04/05/19 22:00 04/05/19 21:23 Lipitor PO 40 mg QHS CHRISTIANO Administration Carvedilol 3.125 mg 04/05/19 10:00 04/05/19 21:23 Coreg PO 3.125 mg BID CHRISTIANO Administration Famotidine 20 mg 04/05/19 10:00 04/05/19 21:22 Pepcid PO 20 mg BID CHRISTIANO Administration Ceftriaxone Sodium 1 gm in 50 mls @ 100 mls/hr 04/05/19 10:00 04/05/19 09:32 Rocephin/Ns 1 Gm/50 Ml IV 100 mls/hr Q24HR CHRISTIANO Administration Protocol Dextrose/Sodium Chloride 1,000 mls @ 75 mls/hr 04/05/19 16:00 04/05/19 21:40 D5/0.45ns IV 75 mls/hr DIRECT CHRISTIANO Administration Isosorbide Mononitrate 30 mg 04/05/19 10:00 04/05/19 09:34 Imdur PO 30 mg QDAY CHRISTIANO Administration Lisinopril 2.5 mg 02/25/20 10:00 04/05/19 09:34 Zestril PO 2.5 mg QDAY CHRISTIANO Administration Multivitamins/Minerals 1 each 04/05/19 10:00 04/05/19 09:33 Theragran-M Tab PO 1 each QDAY CHRISTIANO Administration Olanzapine 5 mg 04/05/19 10:00 04/05/19 10:51 Zyprexa PO 5 mg QDAY CHRISTIANO Administration Ondansetron HCl 4 mg 04/04/19 23:34 Zofran IV Q8H PRN Nausea And Vomiting Oxycodone/Acetaminophen 1 tab 04/04/19 23:34 04/05/19 18:45 Percocet 5/325 PO 1 tab Q6H PRN Administration Pain, Moderate (4-6) Potassium Chloride 40 meq 04/06/19 09:00 K-Dur PO 04/06/19 12:01 Q3H CHRISTIANO Psyllium Hydrophilic Mucilloid 1 each 04/04/19 23:00 04/05/19 21:23 Metamucil PO 1 each BID CHRISTIANO Administration Sertraline HCl 50 mg 04/05/19 10:00 04/05/19 09:34 Zoloft PO 50 mg DAILY CHRISTIANO Administration Sodium Chloride 10 ml 04/05/19 10:00 04/05/19 21:23 Sodium Chloride Flush Syringe 10 Ml IV 10 ml BID CHRISTIANO Administration Sodium Chloride 10 ml 04/04/19 23:34 Sodium Chloride Flush Syringe 10 Ml IV PRN PRN LINE FLUSH Zolpidem Tartrate 5 mg 04/05/19 22:48 04/05/19 23:34 Ambien PO 5 mg QHS PRN Administration Sleep
[2019-04-06] MEDS: carvediloL 3.125 MG TAB PO SCH ×2 (09:28→21:44)
[2019-04-06] MEDS: LISINOPRIL 5 MG TAB PO SCH (09:29)
[2019-04-06] MEDS: ' PO SCH (09:29)
[2019-04-06] MEDS: FAMOTIDINE 20 MG TAB PO SCH ×2 (09:29→21:42)
[2019-04-06] MEDS: POTASSIUM CHLORIDE ER 20 MEQ TAB PO SCH ×2 (09:32→11:38)
[2019-04-06] MEDS: oxyCODONE /ACETAMINOPHEN 5-325MG TAB PO PRN ×2 (09:33→18:34)
[2019-04-06] MEDS: SERTRALINE 50 MG TAB PO SCH (09:33)
[2019-04-06] MEDS: PSYLLIUM SEED (WITH SUGAR) 3.4 GM PACKET PO SCH ×2 (09:48→21:45)
[2019-04-06] MEDS: cefTRIAXone/NS 1 GM/50 ML 1 GM/50 ML BAG IV SCH (09:49)
[2019-04-06] MEDS: D5W/0.45% NACL 1,000 ML IV SCH (09:56)
--- NOTE | 2019-04-06 10:01 | Progress Note ---
Assessment and Plan Chest pain, musculoskeletal Rhabdomyolysis Severe Hematuria Nonischemic CM, EF 10-15% Hx of CAD s/p PCI of the mid LAD in 2018 plavix and aspirin discontinued due to hematuria follows with the [place] Hypertension Recommendations: Continue medical therapy for coronary artery disease. Otherwise, conservative cardiac management. Patient seen in conjunction with Dr Mathews who agrees with recommendations. Subjective Date of service: 04/06/19 Interval history: Patient is resting in bed comfortably. Currently denies chest pain. Objective Vital Signs Temp Pulse Pulse Pulse Pulse Resp BP 04/06/19 08:02 98.2 F 18 163/94 04/06/19 03:32 98.4 F 71 18 156/95 04/05/19 23:00 71 04/05/19 22:55 98.2 F 18 151/91 04/05/19 21:23 71 174/94 04/05/19 20:14 76 04/05/19 19:07 99.6 F 77 18 174/94 04/05/19 12:40 98.0 F 18 133/84 04/05/19 12:00 73 04/05/19 10:22 04/05/19 10:00 66 65 65 65 19 Pulse Ox 04/06/19 08:02 04/06/19 03:32 96 04/05/19 23:00 99 04/05/19 22:55 04/05/19 21:23 04/05/19 20:14 04/05/19 19:07 96 04/05/19 12:40 04/05/19 12:00 04/05/19 10:22 97 04/05/19 10:00 99 - Physical Examination General: No Apparent Distress HEENT: Positive: PERRL Neck: Positive: trachea midline Cardiac: Positive: Reg Rate and Rhythm Lungs: Positive: Decreased Breath Sounds Neuro: Positive: Grossly Intact Extremities: Absent: edema - Labs and Meds CBC 04/06/19 Range/Units 04:37 WBC 12.0 H (4.5-11.0) K/mm3 RBC 4.50 (3.65-5.03) M/mm3 Hgb 13.7 (11.8-15.2) gm/dl Hct 40.6 (35.5-45.6) % Plt Count 282 (140-440) K/mm3 Lymph # 2.4 (1.2-5.4) K/mm3 [place] # 1.3 H (0.0-0.8) K/mm3 Eos # 0.4 (0.0-0.4) K/mm3 Baso # 0.0 (0.0-0.1) K/mm3 Comprehensive Metabolic Panel 04/06/19 Range/Units 04:37 Sodium 145 (137-145) mmol/L Potassium 3.0 L (3.6-5.0) mmol/L Chloride 104.3 (98-107) mmol/L Carbon Dioxide 25 (22-30) mmol/L BUN 5 L (9-20) mg/dL Creatinine 0.6 L (0.8-1.5) mg/dL Glucose 133 H (75-100) mg/dL Calcium 9.0 (8.4-10.2) mg/dL
[2019-04-06] MEDS: ZOLPIDEM 5 MG TAB PO PRN (21:43)
[2019-04-07] MEDS: D5W/0.45% NACL 1,000 ML IV SCH (01:31)
[2019-04-07] MEDS: oxyCODONE /ACETAMINOPHEN 5-325MG TAB PO PRN ×2 (01:33→12:25)
[2019-04-07] MEDS: LISINOPRIL 5 MG TAB PO SCH (09:11)
[2019-04-07] MEDS: SERTRALINE 50 MG TAB PO SCH (09:11)
[2019-04-07] MEDS: FAMOTIDINE 20 MG TAB PO SCH (09:11)
[2019-04-07] MEDS: PSYLLIUM SEED (WITH SUGAR) 3.4 GM PACKET PO SCH (09:11)
[2019-04-07] MEDS: cefTRIAXone/NS 1 GM/50 ML 1 GM/50 ML BAG IV SCH (09:12)
[2019-04-07] MEDS: carvediloL 3.125 MG TAB PO SCH (09:12)
[2019-04-07] MEDS: ' PO SCH (09:12)
[2019-04-07] MEDS ORDERED: POTASSIUM CHLORIDE ER 20 MEQ TAB PO ONE (11:33)
[2019-04-07 12:57] VITALS: BP 146/89
--- NOTE | 2019-04-07 13:05 | Discharge Summary ---
Providers - Providers Date of Admission: 04/05/19 14:25 Date of discharge: 04/07/19 Attending physician: PANFILO BILLINGS 04/04/19 23:34 Consult to Physician [CONS] Routine Comment: Consulting Provider: GABY PRYOR Physician Instructions: Reason For Exam: cp 04/05/19 14:50 Consult to Physician [CONS] Routine Comment: Consulting Provider: BARBARA STARKEY Physician Instructions: Reason For Exam: Hematuria Primary care physician: MANAGER BUSINESS Hospitalization Condition: Stable Hospital course: --Toño hematuria; Continuous Callejas catheterization, bladder irrigation Urology evaluation and recommendations noted and appreciated Recommend DC home with Callejas and follow-up in the office for further evaluation --Urinary tract infection; continue empiric antibiotics Symptoms slightly improved, follow culture sensitivities and adjust antibiotics --Atypical chest pain; probably musculoskeletal pain Serial cardiac enzymes negative, EF 55 to 60% Continue current cardiac medications, cardiology following --Coronary artery disease status post PCI in 2018; Hold aspirin and Plavix , patient has hematuria Cardiology following, will resume aspirin if okay with urology --Cardiomyopathy; EF during this admission 55 to 60% No evidence of cardiomyopathy --History of hypertension; moderate control Continue current antihypertensives and PRN medications --Rhabdomyolysis; preserved renal function Gentle hydration monitor input output CK levels 800s, advised plenty of oral fluids --DVT prophylaxis; no pharmacologic anticoagulation in view of hematuria SCDs Monitor closely and adjust management as needed Plan of care reviewed with the patient and his nurse Consults and recommendations noted and appreciated Possible discharge tomorrow if stable Disposition: DC-01 TO HOME OR SELFCARE Time spent for discharge: 32 min Core Measure Documentation - Palliative Care Palliative Care/ Comfort Measures: Not Applicable - Core Measures Any of the following diagnoses?: none Exam - Constitutional Vitals: Temp Pulse Resp BP Pulse Ox 98.3 F 72 18 146/89 97 04/07/19 12:56 04/07/19 12:56 04/07/19 12:56 04/07/19 12:56 04/07/19 12:56 Plan Activity: advance as tolerated, fall precautions Additional Instructions: Discharge the patient with Callejas in place. Do not remove Callejas catheter till you see urologist. Do not take Plavix until you see the dramatic teacher. Advised to continue aspirin 81 mg daily, stop if you notice bleeding in the urine and contact MD Follow up with: PRIMARY CARE, [Primary Care Provider] - 3-5 Days GABY PRYOR MD [Staff Physician] - 7 Days BARBARA STARKEY MD [Staff Physician] - 7 Days Prescriptions: levoFLOXacin [Levaquin] 750 mg PO QDAY #10 tablet
== END 2019-04-07 15:55 | disposition home or self-care (01) | DRG 313 ==
LOC: ED 15:20 → 4A 22:11 → OBSVTOIN 04-05 14:25
PROVIDERS: ADMIT Internal Medicine; ATTEND Internal Medicine
DX: R07.89 Other chest pain (principal); M62.82 Rhabdomyolysis; N39.0 Urinary tract infection, site not specified; I42.9 Cardiomyopathy, unspecified; I50.22 Chronic systolic (congestive) heart failure; I25.10 Atherosclerotic heart disease of native coronary artery without angina pectoris; R31.9 Hematuria, unspecified
CPT/HCPCS: 36415; 71045; 74176; 80048; 81001; 82550; 82553; 83690; 83735; 83880; 84132; 84484; 85025; 85610; 85730; 87086; 93005; 93010; 93306; G0378; A9270-GY; J0696